=== PATIENT | female | born 1960 | race African-American/Black ===

== ENCOUNTER 2024-07-05 23:33 | Emergency (ER) | payer OTHER ==
[~2024-07-05] VITALS: Ht 162.6 cm; Wt 97.1 kg
[2024-07-05] MEDS ORDERED: EMPA25TA PO (23:49)
[2024-07-05] MEDS ORDERED: LISI10TA29 PO (23:49)
[2024-07-05] MEDS ORDERED: SEMA1PEN SQ (23:49)
[2024-07-06] MEDS: HYDROMORPHONE 1 MG/1 ML DISP.SYRIN IV ONE (00:07)
[2024-07-06] MEDS ORDERED: ONDANSETRON 4 MG/2 ML VIAL ONE (00:59)
[2024-07-06] MEDS ORDERED: HYDROMORPHONE 1 MG/1 ML DISP.SYRIN ONE (00:59)
[2024-07-06] MEDS: IV NORMAL SALINE 1000 ML BAG IV ONE (01:00)
[2024-07-06 01:03] LABS: BASOPHILS # (AUTO) 0.1 K/UL (0.0-0.2); BASOPHILS % (AUTO) 0.8 % (0.0-2.0); EOSINOPHILS # (AUTO) 0.1 K/uL (0.0-0.7); EOSINOPHILS % (AUTO) 0.5 % (0.0-7.0); HEMOGLOBIN 15.2 g/dL (10.9-14.3); LYMPHOCYTES # (AUTO) 2.1 K/uL (0.8-4.8); LYMPHOCYTES % (AUTO) 14.5 % (20.5-51.5); MEAN CORPUSCULAR HEMOGLOBIN 29.1 uug (24.7-32.8); MEAN CORPUSCULAR HGB CONC 33 g/dL (32.3-35.6); MEAN CORPUSCULAR VOLUME 88.2 fL (75.5-95.3); MONOCYTES # (AUTO) 0.4 K/uL (0.1-1.30); MONOCYTES % (AUTO) 2.9 % (0.0-11.0); NEUTROPHILS # (AUTO) 11.5 K/uL (1.8-8.9); NEUTROPHILS % (AUTO) 81.3 % (38.5-71.5); PLATELET COUNT (AUTO) 429 K/uL (179-408); RED BLOOD CELL COUNT(AUTO) 5.22 MIL/uL (3.63-4.92); RED CELL DISTRIBUTION WIDTH 15.6 % (12.3-17.7); WHITE BLOOD COUNT (AUTO) 14.2 K/uL (3.8-11.8)
[2024-07-06 01:05] LABS: DIFFERENTIAL COMMENT 1
[2024-07-06] MEDS: ONDANSETRON 4 MG/2 ML VIAL IV ONE (01:06)
[2024-07-06 01:09] LABS: *BILIRUBIN,URIN NEGATIVE (NEGATIVE); *BLOOD, URINE NEGATIVE (NEGATIVE); *CLARITY,URINE CLEAR (CLEAR); *COLOR,URINE YELLOW (YELLOW); *KETONES,URINE NEGATIVE (NEGATIVE); *PROTEIN,URINE TRACE (NEGATIVE); *UROBILINOGEN,URINE 0.2 E.U./dl (NORMAL); LEUKOCYTE ESTERASE ,URINE NEGATIVE (NEGATIVE); NITRITE, URINE NEGATIVE (NEGATIVE); PH,URINE 5.5 (5.0-8.0); UGLUCOSE 3+ (NEGATIVE)
[2024-07-06 01:23] LABS: CALCIUM 9.3 mg/dL (8.5-10.1); CARBON DIOXIDE 27 mmol/L (21-32); CHLORIDE 105 mmol/L (98-107); CREATININE 1.1 mg/dL (0.6-1.3); GLUCOSE 180 mg/dL (74-106); POTASSIUM 4.2 mmol/L (3.5-5.1); SODIUM SERUM 142 mmol/L (136-145); UREA NITROGEN, BLOOD 14 mg/dL (7-18)
[2024-07-06 01:27] LABS: BACTERIA,URINE NONE SEEN /HPF (NONE SEEN); MUCUS,URINE FEW /LPF (0-FEW); RBC,URINE NONE SEEN /HPF (0-3); SQUAMOUS EPITHELIAL CELL,UR FEW /HPF (NONE SEEN); WBC,URINE NONE SEEN /HPF (0-3)
[2024-07-06 01:29] LABS: ALANINE AMINOTRANSFERASE 24 U/L (14-59); ALBUMIN 3.5 g/dL (3.4-5.0); ALKALINE PHOSPHATASE 104 U/L (50-136); ASPARTATE AMINOTRANSFERASE 13 U/L (15-37); BILIRUBIN,DIRECT 0.1 mg/dL (0.0-0.2); BILIRUBIN,TOTAL 0.4 mg/dL (0.2-1.0)
[2024-07-06] MEDS ORDERED: IV NORMAL SALINE 250 ML IV ONE ×2 (01:42→03:03)
[2024-07-06] MEDS ORDERED: SWABABLE VALVE TRANSFER SET EA MC ONE ×2 (01:42→03:02)
[2024-07-06] MEDS ORDERED: IOHEXOL 300MG/ML 100 ML INFUS..BTL ONE (01:42)
[2024-07-06 02:00] LABS: LIPASE < 6 U/L (16-77)
[2024-07-06] MEDS ORDERED: IOHEXOL 350 100 ML INFUS..BTL ONE (03:02)
[2024-07-06] MEDS ORDERED: DICY20TA11 PO (05:12)
[2024-07-06] MEDS ORDERED: ONDA4TAB11 PO (05:12)
[2024-07-06 05:49] VITALS: BP 118/64; O2SAT 98
== END 2024-07-06 05:50 | disposition home or self-care (01) ==
LOC: ER 23:33
DX: R10.31 Right lower quadrant pain (principal); R10.11 Right upper quadrant pain; R11.0 Nausea; E11.65 Type 2 diabetes mellitus with hyperglycemia; E78.5 Hyperlipidemia, unspecified; F17.200 Nicotine dependence, unspecified, uncomplicated; Z79.84 Long term (current) use of oral hypoglycemic drugs; Z79.85 Long-term (current) use of injectable non-insulin antidiabetic drugs; Z79.899 Other long term (current) drug therapy
CPT/HCPCS: 36415; 83690; 85025; A4606; A4663; J1171; J2405; J7040; Q9967